=== PATIENT | female | born 1980 | race African-American/Black ===

== ENCOUNTER 2021-01-19 14:11 | Inpatient (IN) | payer OTHER ==
[2021-01-19] MEDS ORDERED: MAGNESIUM HYDROX 2400MG/30ML ORAL SUSPENSION 30 ML CUP PO PRN (14:57)
[2021-01-19] MEDS ORDERED: MAGNESIUM CITRATE 300 ML BOTTLE PO PRN (14:57)
[2021-01-19] MEDS ORDERED: ONDANSETRON *ODT* 4 MG TABLET SL PRN (14:57)
[2021-01-19] MEDS ORDERED: NICOTINE 10 MG CARTRIDGE (INHALER) IH PRN (14:57)
[2021-01-19] MEDS ORDERED: ACETAMINOPHEN 325 MG TABLET (FP) PO PRN (14:57)
[2021-01-19] MEDS ORDERED: IBUPROFEN 400 MG TABLET (FP) PO PRN (14:57)
[2021-01-19] MEDS ORDERED: BISMUTH SUBSALICYLATE 524 MG/30 ML PO PRN (14:57)
[2021-01-19] MEDS ORDERED: MENTHOL/PHENOL 1 EACH UD MM PRN (14:57)
[2021-01-19] MEDS ORDERED: MAG HYDROX/AL HYDROX/SIMETH 30 ML UNIT-DOSE CUP PO PRN (14:57)
[2021-01-19 15:21] VITALS: BMI 21.1
[2021-01-19] MEDS ORDERED: INSULIN (NOVOLOG) ASPART 100 UNITS/ML 10ML VIAL SQ ONE (19:52)
[2021-01-19] MEDS: ACETAMINOPHEN 325 MG TABLET (FP) PO PRN (19:59)
[2021-01-19] MEDS: METHOCARBAMOL 500 MG TABLET PO PRN (19:59)
[2021-01-19] MEDS: hydrOXYzine PAMOATE 25 MG CAPSULE (FP) PO SCH ×2 (20:00→22:30)
[2021-01-19] MEDS ORDERED: INSULIN SLIDING SCALE (NOVOLOG) 1 VIAL SQ ONE (20:09)
[2021-01-19] MEDS: ATORVASTATIN CA 10 MG TABLET (FP) PO SCH (22:30)
[2021-01-19] MEDS: MELATONIN 5 MG TABLETS PO SCH (22:30)
[2021-01-19] MEDS: THIAMINE HCL 100 MG TABLET (FP) PO SCH (22:30)
[2021-01-20] MEDS: METHOCARBAMOL 500 MG TABLET PO PRN ×3 (04:17→17:20)
[2021-01-20] MEDS: hydrOXYzine PAMOATE 25 MG CAPSULE (FP) PO SCH (06:21)
[2021-01-20] MEDS: ACETAMINOPHEN 325 MG TABLET (FP) PO PRN ×3 (06:21→22:30)
[2021-01-20] MEDS: metFORMIN HCL 500 MG TABLET (FP) PO SCH ×2 (06:22→17:20)
[2021-01-20] MEDS: INSULIN SLIDING SCALE (NOVOLOG) 1 VIAL SQ SCH ×4 (06:23→23:28)
[2021-01-20] MEDS: INSULIN (LEVEMIR) 100 UNITS/ML UNITS SQ SCH (06:25)
[2021-01-20] MEDS: diphenhydrAMINE HCL 25 MG CAPSULE (FP) PO PRN ×2 (10:05→22:30)
[2021-01-20] MEDS: PRENATAL VITAMINS W/ FOLIC ACID TABLET (FP) PO SCH (10:06)
[2021-01-20] MEDS: ASPIRIN 81 MG CHEWABLE TABLETS PO SCH (10:06)
[2021-01-20] MEDS: LISINOPRIL 5 MG TABLET PO SCH (10:08)
[2021-01-20 10:28] LABS: HEMATOCRIT 36.8 % (32.4-45.2); HEMOGLOBIN 12.1 GM/dL (10.7-15.3); MCH 30.4 pg (25.7-33.7); MEAN CELL VOLUME 92.1 fl (80-96); MEAN PLT VOLUME 7.5 fl (7.5-11.1); PLATELET COUNT 413 10^3/uL (134-434); RBC 3.99 M/mm3 (3.60-5.2); RDW 14.2 % (11.6-15.6); WHITE BLOOD COUNT 6.2 K/mm3 (4.0-10.0)
[2021-01-20] MEDS: diazePAM 5 MG TABLET PO SCH ×3 (11:08→22:30)
[2021-01-20 13:01] LABS: ALBUMIN 2.9 g/dl (3.4-5.0); BILIRUBIN,TOTAL 0.1 mg/dL (0.2-1); BLOOD UREA NITROGEN 15.5 mg/dL (7-18); CALCIUM 9.1 mg/dL (8.5-10.1); CREATININE 0.7 mg/dL (0.55-1.3); TOT PROT 6.8 g/dl (6.4-8.2)
[2021-01-20] MEDS: GABAPENTIN 100 MG CAPSULE PO SCH ×2 (13:41→22:28)
[2021-01-20] MEDS ORDERED: ARIPIPRAZOLE (ABILIFY MAINTENA) 400 MG DISPENSE SYRINGE IM ONE (14:35)
[2021-01-20] MEDS: diazePAM 5 MG TABLET PO PRN (14:52)
[2021-01-20] MEDS: ATORVASTATIN CA 10 MG TABLET (FP) PO SCH (22:28)
[2021-01-20] MEDS: MELATONIN 5 MG TABLETS PO SCH (22:28)
[2021-01-20] MEDS: THIAMINE HCL 100 MG TABLET (FP) PO SCH (22:32)
[2021-01-20] MEDS ORDERED: INSULIN (NOVOLOG) ASPART 100 UNITS/ML 10ML VIAL SQ ONE (23:00)
[2021-01-20] MEDS: busPIRone HCL 5 MG TABLET PO SCH (23:08)
[2021-01-21] MEDS: diazePAM 5 MG TABLET PO PRN ×2 (02:14→14:52)
[2021-01-21] MEDS: METHOCARBAMOL 500 MG TABLET PO PRN ×3 (05:44→21:16)
[2021-01-21] MEDS: busPIRone HCL 5 MG TABLET PO SCH ×3 (05:47→21:30)
[2021-01-21] MEDS: diazePAM 5 MG TABLET PO SCH ×4 (05:47→22:08)
[2021-01-21] MEDS: GABAPENTIN 100 MG CAPSULE PO SCH ×3 (05:47→21:16)
[2021-01-21] MEDS: metFORMIN HCL 500 MG TABLET (FP) PO SCH ×2 (05:59→17:40)
[2021-01-21] MEDS: INSULIN (LEVEMIR) 100 UNITS/ML UNITS SQ SCH (05:59)
[2021-01-21] MEDS: INSULIN SLIDING SCALE (NOVOLOG) 1 VIAL SQ SCH ×4 (06:00→21:16)
[2021-01-21] MEDS: ACETAMINOPHEN 325 MG TABLET (FP) PO PRN ×2 (10:02→16:19)
[2021-01-21] MEDS: PRENATAL VITAMINS W/ FOLIC ACID TABLET (FP) PO SCH (10:02)
[2021-01-21] MEDS: ASPIRIN 81 MG CHEWABLE TABLETS PO SCH (10:02)
[2021-01-21] MEDS: LISINOPRIL 5 MG TABLET PO SCH (10:03)
[2021-01-21] MEDS: diphenhydrAMINE HCL 25 MG CAPSULE (FP) PO PRN ×2 (11:28→22:10)
[2021-01-21] MEDS ORDERED: FLU VACC QS2021-22(6MOS UP)/PF 60 MCG/0.5 ML SYRINGE IM ONE (12:00)
[2021-01-21] MEDS: THIAMINE HCL 100 MG TABLET (FP) PO SCH (21:16)
[2021-01-21] MEDS: ATORVASTATIN CA 10 MG TABLET (FP) PO SCH (21:16)
[2021-01-21] MEDS: MELATONIN 5 MG TABLETS PO SCH (21:17)
[2021-01-22] MEDS: diazePAM 5 MG TABLET PO PRN ×2 (01:23→10:15)
[2021-01-22] MEDS: ACETAMINOPHEN 325 MG TABLET (FP) PO PRN ×3 (01:23→21:07)
[2021-01-22] MEDS: GABAPENTIN 100 MG CAPSULE PO SCH ×3 (05:48→22:12)
[2021-01-22] MEDS: diazePAM 5 MG TABLET PO SCH ×3 (05:48→22:27)
[2021-01-22] MEDS: busPIRone HCL 5 MG TABLET PO SCH ×3 (05:48→21:07)
[2021-01-22] MEDS: INSULIN SLIDING SCALE (NOVOLOG) 1 VIAL SQ SCH ×4 (06:33→21:11)
[2021-01-22] MEDS: metFORMIN HCL 500 MG TABLET (FP) PO SCH ×2 (06:34→17:25)
[2021-01-22] MEDS: INSULIN (LEVEMIR) 100 UNITS/ML UNITS SQ SCH (06:37)
[2021-01-22] MEDS: PRENATAL VITAMINS W/ FOLIC ACID TABLET (FP) PO SCH (10:14)
[2021-01-22] MEDS: ASPIRIN 81 MG CHEWABLE TABLETS PO SCH (10:14)
[2021-01-22] MEDS: METHOCARBAMOL 500 MG TABLET PO PRN ×2 (10:18→17:24)
[2021-01-22] MEDS: LISINOPRIL 5 MG TABLET PO SCH (10:51)
[2021-01-22] MEDS: diphenhydrAMINE HCL 25 MG CAPSULE (FP) PO PRN (15:14)
[2021-01-22] MEDS: THIAMINE HCL 100 MG TABLET (FP) PO SCH (22:12)
[2021-01-22] MEDS: ATORVASTATIN CA 10 MG TABLET (FP) PO SCH (22:12)
[2021-01-22] MEDS: MELATONIN 5 MG TABLETS PO SCH (22:12)
[2021-01-22] MEDS: traZODone HCL 50 MG TABLET (FP) PO SCH (22:12)
[2021-01-23] MEDS: METHOCARBAMOL 500 MG TABLET PO PRN ×3 (02:14→22:07)
[2021-01-23] MEDS: diazePAM 5 MG TABLET PO PRN (02:14)
[2021-01-23] MEDS: diazePAM 5 MG TABLET PO SCH ×2 (05:15→17:26)
[2021-01-23] MEDS: busPIRone HCL 5 MG TABLET PO SCH ×3 (05:16→22:08)
[2021-01-23] MEDS: GABAPENTIN 100 MG CAPSULE PO SCH ×3 (05:17→22:08)
[2021-01-23] MEDS: metFORMIN HCL 500 MG TABLET (FP) PO SCH ×2 (06:19→17:26)
[2021-01-23] MEDS: INSULIN SLIDING SCALE (NOVOLOG) 1 VIAL SQ SCH ×4 (07:14→22:06)
[2021-01-23] MEDS: INSULIN (LEVEMIR) 100 UNITS/ML UNITS SQ SCH (07:14)
[2021-01-23] MEDS: PRENATAL VITAMINS W/ FOLIC ACID TABLET (FP) PO SCH (10:03)
[2021-01-23] MEDS: ACETAMINOPHEN 325 MG TABLET (FP) PO PRN ×2 (10:04→15:54)
[2021-01-23] MEDS: ASPIRIN 81 MG CHEWABLE TABLETS PO SCH (10:44)
[2021-01-23] MEDS: LISINOPRIL 5 MG TABLET PO SCH (10:44)
[2021-01-23] MEDS: diphenhydrAMINE HCL 25 MG CAPSULE (FP) PO PRN (22:07)
[2021-01-23] MEDS: THIAMINE HCL 100 MG TABLET (FP) PO SCH (22:08)
[2021-01-23] MEDS: ATORVASTATIN CA 10 MG TABLET (FP) PO SCH (22:08)
[2021-01-23] MEDS: traZODone HCL 50 MG TABLET (FP) PO SCH (22:08)
[2021-01-23] MEDS: MELATONIN 5 MG TABLETS PO SCH (22:10)
[2021-01-24] MEDS: ACETAMINOPHEN 325 MG TABLET (FP) PO PRN ×2 (03:44→10:54)
[2021-01-24] MEDS: METHOCARBAMOL 500 MG TABLET PO PRN ×2 (05:40→11:45)
[2021-01-24] MEDS: busPIRone HCL 5 MG TABLET PO SCH (05:40)
[2021-01-24] MEDS: GABAPENTIN 100 MG CAPSULE PO SCH (05:40)
[2021-01-24] MEDS: diphenhydrAMINE HCL 25 MG CAPSULE (FP) PO PRN (05:44)
[2021-01-24] MEDS ORDERED: diazePAM 5 MG TABLET PO ONE (06:00)
[2021-01-24] MEDS: INSULIN SLIDING SCALE (NOVOLOG) 1 VIAL SQ SCH ×2 (06:32→11:50)
[2021-01-24] MEDS: metFORMIN HCL 500 MG TABLET (FP) PO SCH (06:35)
[2021-01-24] MEDS: INSULIN (LEVEMIR) 100 UNITS/ML UNITS SQ SCH (06:35)
[2021-01-24 09:23] VITALS: BP 109/65; PULSE 112; TEMP 97.1
[2021-01-24] MEDS: LISINOPRIL 5 MG TABLET PO SCH (09:57)
[2021-01-24] MEDS: ASPIRIN 81 MG CHEWABLE TABLETS PO SCH (09:57)
[2021-01-24] MEDS: PRENATAL VITAMINS W/ FOLIC ACID TABLET (FP) PO SCH (09:57)
[2021-01-24] MEDS ORDERED: INSULIN SLIDING SCALE (NOVOLOG) 1 VIAL SQ ONE ×2 (11:47→12:24)
[2021-01-24 19:05] LABS: HIV INTERPRETATION NEGATIVE (NEGATIVE)
== END 2021-01-24 12:51 | disposition other institution (70) | DRG 773 ==
LOC: YASAS 14:11 → Y3N 17:12
PROVIDERS: ADMIT Allergy & Immunology; ATTEND Allergy & Immunology
PROC: HZ2ZZZZ Detoxification Services for Substance Abuse Treatment (ICD-10-PCS; principal; 2021-01-19)
DX: F11.23 Opioid dependence with withdrawal (principal); F13.20 Sedative, hypnotic or anxiolytic dependence, uncomplicated; F14.20 Cocaine dependence, uncomplicated; F12.20 Cannabis dependence, uncomplicated; F16.10 Hallucinogen abuse, uncomplicated; F17.210 Nicotine dependence, cigarettes, uncomplicated; F19.24 Other psychoactive substance dependence with psychoactive substance-induced mood disorder; F20.9 Schizophrenia, unspecified; I10 Essential (primary) hypertension; E11.9 Type 2 diabetes mellitus without complications; E78.5 Hyperlipidemia, unspecified; G47.00 Insomnia, unspecified; R00.0 Tachycardia, unspecified; Z88.0 Allergy status to penicillin; Z79.84 Long term (current) use of oral hypoglycemic drugs; Z79.4 Long term (current) use of insulin; Z56.0 Unemployment, unspecified; Z59.00 Homelessness unspecified
CPT/HCPCS: 36415; 80053; 81025; 82962; 83036; 85027; 86780; 87389; 90686; 93005; 93010; C9803; G0008; U0003; U0005

== ENCOUNTER 2021-01-24 12:48 | Inpatient (IN) | payer OTHER ==
[2021-01-24] MEDS ORDERED: hydrOXYzine PAMOATE 25 MG CAPSULE (FP) PO PRN (13:10)
[2021-01-24] MEDS ORDERED: MAG HYDROX/AL HYDROX/SIMETH 30 ML UNIT-DOSE CUP PO PRN (13:10)
[2021-01-24] MEDS ORDERED: NICOTINE 10 MG CARTRIDGE (INHALER) IH PRN (13:10)
[2021-01-24] MEDS ORDERED: LOPERAMIDE HCL 2 MG CAPSULE PO PRN (13:10)
[2021-01-24] MEDS ORDERED: MAGNESIUM CITRATE 300 ML BOTTLE PO PRN (13:10)
[2021-01-24] MEDS ORDERED: guaiFENesin 200 MG/10 ML 10 ML UNIT-DOSE CUPS PO PRN (13:10)
[2021-01-24] MEDS ORDERED: IBUPROFEN 400 MG TABLET (FP) PO PRN (13:10)
[2021-01-24] MEDS ORDERED: MAGNESIUM HYDROX 2400MG/30ML ORAL SUSPENSION 30 ML CUP PO PRN (13:10)
[2021-01-24] MEDS ORDERED: MENTHOL/PHENOL 1 EACH UD MM PRN (13:10)
[2021-01-24] MEDS ORDERED: P-EPHED 60MG/TRIPROLIDI 2.5MG TABLET PO PRN (13:10)
[2021-01-24] MEDS: busPIRone HCL 5 MG TABLET PO SCH ×2 (13:59→22:24)
[2021-01-24] MEDS: GABAPENTIN 100 MG CAPSULE PO SCH ×2 (13:59→22:24)
[2021-01-24] MEDS: ACETAMINOPHEN 325 MG TABLET (FP) PO PRN (15:17)
[2021-01-24] MEDS: diphenhydrAMINE HCL 25 MG CAPSULE (FP) PO PRN (15:17)
[2021-01-24] MEDS: INSULIN SLIDING SCALE (NOVOLOG) 1 VIAL SQ SCH (16:44)
[2021-01-24] MEDS: metFORMIN HCL 500 MG TABLET (FP) PO SCH (16:49)
[2021-01-24] MEDS: MELATONIN 5 MG TABLETS PO SCH (22:24)
[2021-01-24] MEDS: ATORVASTATIN CA 10 MG TABLET (FP) PO SCH (22:24)
[2021-01-24] MEDS: THIAMINE HCL 100 MG TABLET (FP) PO SCH (22:24)
[2021-01-24] MEDS: METHOCARBAMOL 500 MG TABLET PO PRN (22:26)
[2021-01-25] MEDS ORDERED: INSULIN (NOVOLOG) ASPART 100 UNITS/ML 10ML VIAL ONE ×4 (06:32→16:51)
[2021-01-25] MEDS: GABAPENTIN 100 MG CAPSULE PO SCH ×3 (06:33→21:52)
[2021-01-25] MEDS: metFORMIN HCL 500 MG TABLET (FP) PO SCH ×2 (06:33→16:51)
[2021-01-25] MEDS: ACETAMINOPHEN 325 MG TABLET (FP) PO PRN ×3 (06:34→21:45)
[2021-01-25] MEDS: busPIRone HCL 5 MG TABLET PO SCH (06:35)
[2021-01-25] MEDS: INSULIN SLIDING SCALE (NOVOLOG) 1 VIAL SQ SCH ×3 (06:35→16:52)
[2021-01-25] MEDS: PRENATAL VITAMINS W/ FOLIC ACID TABLET (FP) PO SCH (10:40)
[2021-01-25] MEDS: METHOCARBAMOL 500 MG TABLET PO PRN ×2 (10:41→21:37)
[2021-01-25] MEDS: NICOTINE 7 MG/24 HOURS TOPICAL PATCH TD SCH (10:41)
[2021-01-25] MEDS: ASPIRIN 81 MG CHEWABLE TABLETS PO SCH (10:41)
[2021-01-25] MEDS: LISINOPRIL 5 MG TABLET PO SCH (10:42)
[2021-01-25] MEDS: BISMUTH SUBSALICYLATE 262 MG/15 ML BTL PO PRN ×2 (11:43→21:38)
[2021-01-25] MEDS: ONDANSETRON *ODT* 4 MG TABLET SL PRN (11:44)
[2021-01-25] MEDS: busPIRone HCL 10 MG TABLET (FP) PO SCH ×2 (13:12→21:37)
[2021-01-25] MEDS: diphenhydrAMINE HCL 25 MG CAPSULE (FP) PO PRN ×2 (13:59→21:43)
[2021-01-25] MEDS: ATORVASTATIN CA 10 MG TABLET (FP) PO SCH (21:37)
[2021-01-25] MEDS: MELATONIN 5 MG TABLETS PO SCH (21:38)
[2021-01-25] MEDS: THIAMINE HCL 100 MG TABLET (FP) PO SCH (21:38)
[2021-01-25] MEDS ORDERED: busPIRone HCL 10 MG TABLET (FP) PO SCH (22:00)
[2021-01-26] MEDS: ONDANSETRON *ODT* 4 MG TABLET SL PRN (02:13)
[2021-01-26] MEDS ORDERED: INSULIN (NOVOLOG) ASPART 100 UNITS/ML 10ML VIAL ONE ×3 (06:24→11:14)
[2021-01-26] MEDS: busPIRone HCL 10 MG TABLET (FP) PO SCH ×3 (06:26→21:13)
[2021-01-26] MEDS: GABAPENTIN 100 MG CAPSULE PO SCH ×3 (06:26→22:34)
[2021-01-26] MEDS: metFORMIN HCL 500 MG TABLET (FP) PO SCH ×2 (07:26→16:35)
[2021-01-26] MEDS: INSULIN SLIDING SCALE (NOVOLOG) 1 VIAL SQ SCH ×4 (07:27→21:22)
[2021-01-26] MEDS: ACETAMINOPHEN 325 MG TABLET (FP) PO PRN ×2 (07:28→15:51)
[2021-01-26] MEDS: ASPIRIN 81 MG CHEWABLE TABLETS PO SCH (09:51)
[2021-01-26] MEDS: PRENATAL VITAMINS W/ FOLIC ACID TABLET (FP) PO SCH (09:51)
[2021-01-26] MEDS: METHOCARBAMOL 500 MG TABLET PO PRN ×2 (09:52→21:16)
[2021-01-26] MEDS: NICOTINE 7 MG/24 HOURS TOPICAL PATCH TD SCH (09:55)
[2021-01-26] MEDS ORDERED: DIPHENOXYLATE 2.5/ATROPINE.025 1 COMBO TABLET PO PRN (10:35)
[2021-01-26] MEDS: LISINOPRIL 5 MG TABLET PO SCH (11:07)
[2021-01-26] MEDS ORDERED: BUPRENORPHINE/NALOXONE 4 MG/1 MG FILM PACKET SL ONE (15:00)
[2021-01-26] MEDS: diphenhydrAMINE HCL 25 MG CAPSULE (FP) PO PRN (15:51)
[2021-01-26] MEDS: THIAMINE HCL 100 MG TABLET (FP) PO SCH (21:13)
[2021-01-26] MEDS: BUPRENORPHINE/NALOXONE 4 MG/1 MG FILM PACKET SL SCH (21:16)
[2021-01-26] MEDS: MELATONIN 5 MG TABLETS PO SCH (21:18)
[2021-01-26] MEDS: ATORVASTATIN CA 10 MG TABLET (FP) PO SCH (22:34)
[2021-01-27] MEDS: diphenhydrAMINE HCL 25 MG CAPSULE (FP) PO PRN (01:23)
[2021-01-27] MEDS: ACETAMINOPHEN 325 MG TABLET (FP) PO PRN ×2 (01:23→06:16)
[2021-01-27] MEDS ORDERED: INSULIN (NOVOLOG) ASPART 100 UNITS/ML 10ML VIAL ONE ×2 (03:26→07:05)
[2021-01-27] MEDS: INSULIN SLIDING SCALE (NOVOLOG) 1 VIAL SQ SCH (06:12)
[2021-01-27] MEDS: metFORMIN HCL 500 MG TABLET (FP) PO SCH (06:13)
[2021-01-27] MEDS: GABAPENTIN 100 MG CAPSULE PO SCH (06:13)
[2021-01-27] MEDS: busPIRone HCL 10 MG TABLET (FP) PO SCH (06:14)
[2021-01-27 07:17] VITALS: TEMP 97.1
[2021-01-27 08:49] VITALS: BP 122/78; PULSE 106
[2021-01-27] MEDS: PRENATAL VITAMINS W/ FOLIC ACID TABLET (FP) PO SCH (09:33)
[2021-01-27] MEDS: LISINOPRIL 5 MG TABLET PO SCH (09:34)
[2021-01-27] MEDS: BUPRENORPHINE/NALOXONE 4 MG/1 MG FILM PACKET SL SCH (09:35)
[2021-01-27] MEDS: METHOCARBAMOL 500 MG TABLET PO PRN (09:36)
[2021-01-27] MEDS: NICOTINE 7 MG/24 HOURS TOPICAL PATCH TD SCH (09:38)
[2021-01-27] MEDS: ASPIRIN 81 MG CHEWABLE TABLETS PO SCH (09:39)
== END 2021-01-27 11:45 | disposition left against medical advice (07) | DRG 770 ==
LOC: YASAS 12:48 → Y5N 12:51
PROVIDERS: ADMIT Allergy & Immunology; ATTEND Allergy & Immunology
PROC: HZ42ZZZ Group Counseling for Substance Abuse Treatment, Cognitive-Behavioral (ICD-10-PCS; principal; 2021-01-24)
DX: F10.20 Alcohol dependence, uncomplicated (principal); F11.20 Opioid dependence, uncomplicated; F14.20 Cocaine dependence, uncomplicated; F12.10 Cannabis abuse, uncomplicated; F13.10 Sedative, hypnotic or anxiolytic abuse, uncomplicated; I10 Essential (primary) hypertension; E11.9 Type 2 diabetes mellitus without complications; E78.5 Hyperlipidemia, unspecified; Z79.84 Long term (current) use of oral hypoglycemic drugs; Z59.00 Homelessness unspecified
CPT/HCPCS: 82962; Q0162